=== PATIENT | female | born 1990 ===

== ENCOUNTER 2017-05-12 15:57 | Emergency (ER) | payer MEDICAID ==
[2017-05-12 16:21] VITALS: RESP 16; O2SAT 100
--- NOTE | 2017-05-12 16:45 | ED PDOC ---
HPI: Skin/Bite Injury Time Seen by Provider: 05/12/17 16:27 Chief Complaint (Nursing): Abnormal Skin Integrity Chief Complaint (Provider): Abnormal Skin Integrity History Per: Patient History/Exam Limitations: no limitations Onset/Duration Of Symptoms: Days (5x days) Current Symptoms Are (Timing): Still Present Quality Of Symptoms: Itching, Draining Severity: Moderate Additional Complaint(s): 26 year old female with no pertinent medical history presents to the ED with complaints of abnormal skin integrity that started 5x days ago. She reports that she first noticed a "boil" on her tongue 5x days, and popped it. Yesterday she started developing a rash on her elbows and knuckles on both hands. Patient was seen in the ED yesterday for the same complaint, and discharged with instructions to stop taking flagyl (which she has stopped taking) and given a prescription for Cleocin (which she has not taken). She denies having fevers, chills, and any other medical complaints. PMD: Patient does not have a PMD. Past Medical History Reviewed: Historical Data, Nursing Documentation, Vital Signs Vital Signs: Last Vital Signs Temp 98.3 F 05/12/17 16:19 Pulse 105 H 05/12/17 16:19 Resp 16 05/12/17 16:19 BP 112/67 05/12/17 16:19 Pulse Ox 100 05/12/17 17:37 - Medical History PMH: No Chronic Diseases - Surgical History Surgical History: - Family History Family History: States: Unknown Family Hx - Living Arrangements Living Arrangements: With Family - Social History Current smoker - smoking cessation education provided: No Alcohol: None Drugs: Denies - Immunization History Hx Tetanus Toxoid Vaccination: No Hx Influenza Vaccination: No Hx Pneumococcal Vaccination: No - Home Medications Home Medications: Ambulatory Orders Medication Instructions Recorded Clindamycin [Cleocin] 300 mg PO QID #28 cap 05/11/17 Lidocaine 2% Viscous 20 ml PO TID #1 bottle 05/11/17 Mag&Al/Simet/Diphen/Lido [First 5 ml MM TID PRN #1 kit 05/12/17 Magic Mouthwash] predniSONE [Prednisone] 3 tab PO DAILY #12 tab 05/12/17 - Allergies Allergies/Adverse Reactions: Allergies Allergy/AdvReac Type Severity Reaction Status Date / Time No Known Allergies Allergy Verified 05/12/17 16:19 Review of Systems ROS Statement: Except As Marked, All Systems Reviewed And Found Negative Constitutional: Negative for: Fever, Chills Skin: Positive for: Rash (on upper extremities, cabral on tongue.) Physical Exam - Reviewed Nursing Documentation Reviewed: Yes Vital Signs Reviewed: Yes - Physical Exam Appears: Positive for: Well, Non-toxic, No Acute Distress Head Exam: Positive for: ATRAUMATIC, NORMOCEPHALIC Skin: Positive for: Warm, Dry, Rash (1.5 cm blister on surface of tongue. surrounding erythema. small regions of patchy erythema sporadically on upper extremities.) Neck: Positive for: Normal Respiratory: Positive for: Normal Breath Sounds. Negative for: Respiratory Distress Neurologic/Psych: Positive for: Alert, Oriented (3x) - Laboratory Results Result Diagrams: 05/12/17 17:07 05/12/17 17:07 - ECG O2 Sat by Pulse Oximetry: 100 (RA) Pulse Ox Interpretation: Normal Medical Decision Making Medical Decision Makin:27 Initial impression: 26 year old female with abnormal skin integrity. Initial plan: * CMP * CBC * reevaluation Scribe Attestation: Documented by Loraine Tapia, acting as a scribe for Jose Hernandez PA-C. Provider Scribe Attestation: All medical record entries made by the Scribe were at my direction and personally dictated by me. I have reviewed the chart and agree that the record accurately reflects my personal performance of the history, physical exam, medical decision making, and the department course for this patient. I have also personally directed, reviewed, and agree with the discharge instructions and disposition. Disposition - Clinical Impression Clinical Impression: Medication side effect - Patient ED Disposition Is Patient to be Admitted: No - Disposition Referrals: Anuj Good MD [Staff Provider] - Disposition: Routine/Home Disposition Time: 18:49 Condition: FAIR Prescriptions: Mag&Al/Simet/Diphen/Lido [First Magic Mouthwash] 5 ml MM TID PRN #1 kit PRN Reason: Pain, Moderate (4-7) predniSONE [Prednisone] 3 tab PO DAILY #12 tab Instructions: Acute Rash (DC) Forms: [employer] (Amharic)
[2017-05-12 17:10] LABS: BASO % 0.9 % (0.0-2.0); EOS # 0.1 K/uL (0.0-0.7); EOS % 2.6 % (0.0-4.0); HEMATOCRIT 38.1 % (34.0-47.0); LYMPH # 1.7 K/uL (1.0-4.3); LYMPH % 30.8 % (20.0-40.0); MEAN CELL VOLUME 93.3 fl (81.0-99.0); MEAN CORPUSCULAR HEMOGLOBIN 32.2 pg (27.0-31.0); MEAN CORPUSCULAR HGB CONC 34.5 g/dL (33.0-37.0); MEAN PLATELET VOLUME 11.2 fl (7.2-11.7); MONO # 0.6 K/uL (0.0-0.8); MONO % 10.6 % (0.0-10.0); NEUT % 55.1 % (50.0-75.0); NRBC % 0.1 % (0.0-0.0); RED CELL DISTRIBUTION WIDTH 12.7 % (11.5-14.5); WHITE BLOOD COUNT 5.4 K/uL (4.8-10.8)
[2017-05-12 17:23] LABS: ALB/GLOB RATIO 1.4 (1.0-2.1); ALKALINE PHOSPHATASE 32 U/L (38-126); ALT/SGPT 21 U/L (9-52); AST/SGOT 24 U/L (14-36); BILIRUBIN,TOTAL 0.5 mg/dl (0.2-1.3); BLOOD UREA NITROGEN 15 mg/dl (7-17); CALCIUM 9.1 mg/dL (8.4-10.2); CARBON DIOXIDE 23 mmol/L (22-30); CHLORIDE 106 mmol/L (98-107); GFR AFRICAN-AMERICAN > 60; GLUCOSE,RANDOM 101 mg/dL (65-105); POTASSIUM 3.8 MMOL/L (3.6-5.0); SODIUM 139 mmol/l (132-148); TOTAL PROTEIN 7.2 G/DL (6.3-8.2)
[2017-05-12 19:13] VITALS: BP 115/62; PULSE 74; TEMP 97.9
== END 2017-05-12 19:12 | disposition home or self-care (01) ==
LOC: H.ER 15:57
DX: L02.92 Furuncle, unspecified (principal); T88.7XXA Unspecified adverse effect of drug or medicament, initial encounter
CPT/HCPCS: 80053; 81025; 85025; 96374; 96375; 99283; J2930